=== PATIENT | male | born 1995 | race Two or more races ===

== ENCOUNTER → 2023-10-10 | Outpatient (CLI) | payer OTHER | LOC: M PLAIMG 09:55 → M RAD 09:55 | PROVIDERS: ATTEND Orthopaedic Surgery | DX: M25.512 Pain in left shoulder (principal) ==

== ENCOUNTER → 2024-01-20 | Outpatient (REF) | payer OTHER | LOC: M LAB REF 07:50 | PROVIDERS: ATTEND Surgery | DX: D17.1 Benign lipomatous neoplasm of skin and subcutaneous tissue of trunk (principal); D17.21 Benign lipomatous neoplasm of skin and subcutaneous tissue of right arm ==